=== PATIENT | male | born 1960 | race Hispanic/Latino ===

== ENCOUNTER 2017-06-11 14:08 | Emergency (ER) | payer SELFPAY ==
--- NOTE | 2017-06-11 15:46 | RAD ---
PA AND LATERAL CHEST XRAY: DATE: 06/11/17. HISTORY: Cough and chest discomfort. COMPARISON: None available. FINDINGS: Cardiac silhouette and pulmonary vasculature are within normal limits. The lungs are clear. Degener ative changes are seen in the spine. IMPRESSION: No acute cardiopulmonary process. POS: JALEEL
[2017-06-11 16:51] LABS: #Basophils 0.1 thou/uL (0.0-0.2); #Eosinphils 0.2 thou/uL (0.0-0.7); #Monocytes 1.1 thou/uL (0.11-0.59); #Neutrophils 3.9 thou/uL (1.40-6.50); %Basophils 0.8 % (0.0-1.0); %Eosinophils 1.9 % (0.0-10.0); %Lymphocytes 36.9 % (21.0-51.0); %Monocytes 13.1 % (0.0-10.0); Hematocrit 43.1 % (42.0-52.0); Mean Platelet Volume 7.6 fL (7.4-10.4); Red Blood Cell (RBC) Count 4.37 mill/uL (4.70-6.10); White Blood Cell (WBC) Count 8.2 thou/uL (4.8-10.8)
[2017-06-11 17:11] LABS: Anion Gap 9 mmol/L (10-20); BUN (Urea Nitrogen) 11 mg/dL (8.4-25.7); Calc. Creatinine Clearance 0 mL/min (70-130); Calcium 9.2 mg/dL (7.8-10.44); Carbon Dioxide 26 mmol/L (22-29); Chloride 107 mmol/L (98-107); Estimated GFR-MDRD Greater than 90
[2017-06-11 17:14] LABS: Troponin I Less than 0.010 ng/mL (< 0.028)
--- NOTE | 2017-07-19 13:38 | EKG ---
Test Reason : Blood Pressure : / mmHG Vent. Rate : 064 BPM Atrial Rate : 064 BPM P-R Int : 166 ms QRS Dur : 086 ms QT Int : 392 ms P-R-T Axes : 011 014 024 degrees QTc Int : 404 ms Normal sinus rhythm Normal ECG Confirmed by JAVIER MORENO ([id number]), restaurant expeditor DARSHAN GUZMAN ([id number]) on 07/19/2017 1:38:05 PM Referred By: Confirmed By:JVAIER MORENO
== END 2017-06-11 18:05 | disposition home or self-care (01) ==
LOC: ERS 14:08
DX: J06.9 Acute upper respiratory infection, unspecified (principal)
CPT/HCPCS: 36415; 71020; 80048; 82553; 83735; 84484; 85025; 93005